=== PATIENT | male | born 1970 | race American Indian/Alaskan Native ===

== ENCOUNTER 2017-01-08 09:23 | Emergency (ER) | payer MEDICAID ==
[2017-01-08 09:23] VITALS: BMI 33.3
[2017-01-08] MEDS ORDERED: Dexamethasone 4 mg/1 ml IM STA (10:02)
--- NOTE | 2017-01-08 10:09 | C.PDOC ---
History Of Present Illness 46 y/o male presents to the ED for evaluation of itchy rash immediately below the nose since this morning. Pt states he found "poppers" last night in his basement, and states he felt lightheaded after sniffing it, and put it away afterwards. Pt states he woke up this morning with the rash. Otherwise, denies any pain, headache, dizziness, vision change, or fever. Time Seen by Provider: 01/08/17 09:39 Chief Complaint (Nursing): Allergic Reaction History Per: Patient History/Exam Limitations: no limitations Onset/Duration Of Symptoms: Hrs Current Symptoms Are (Timing): Still Present Location Of Injury: Anterior: Face Quality Of Symptoms: Itching. denies: Painful, Swollen, Draining Severity: Mild Additional History Per: Patient Past Medical History Reviewed: Historical Data, Nursing Documentation, Vital Signs Vital Signs: Last Vital Signs Temp 97.7 F 01/08/17 10:26 Pulse 65 01/08/17 10:26 Resp 18 01/08/17 10:26 BP 115/73 01/08/17 10:26 Pulse Ox 95 01/08/17 12:27 - Medical History PMH: Asthma, COPD, HTN, Hypercholesterolemia Surgical History: Cholecystectomy - [facility] Procedures INJECT/INFUSE NEC (11/25/14) OTHER SKIN & SUBQ I D (03/17/13) Family History: States: No Known Family Hx - Social History Hx Tobacco Use: Yes Hx Alcohol Use: Yes (1 bottle of beer) Hx Substance Use: Yes (marijuana) - Immunization History Hx Tetanus Toxoid Vaccination: No Hx Influenza Vaccination: No Hx Pneumococcal Vaccination: No Review Of Systems Except As Marked, All Systems Reviewed And Found Negative. Constitutional: Negative for: Fever, Chills Eyes: Negative for: Vision Change Cardiovascular: Negative for: Chest Pain, Palpitations, Light Headedness Respiratory: Negative for: Shortness of Breath Skin: Positive for: Rash (below the nose) Neurological: Negative for: Headache, Dizziness Physical Exam - Physical Exam Appears: Well, Non-toxic, No Acute Distress Skin: Warm, Dry, Rash (non-vesicular, honey crusted rash inferior/exterior nares and philthrum) Head: Normacephalic Nose: Normal, No Epistaxis, No Deformity, No Septal Hematoma Oral Mucosa: Moist Tongue: Normal Appearing, No Swelling Lips: Normal Appearing, No Swelling Throat: Normal, No Erythema, No Exudate, No Drooling Cardiovascular: Rhythm Regular Respiratory: Normal Breath Sounds, No Accessory Muscle Use, No Rales, No Rhonchi , No Wheezing Neurological/Psych: Oriented x3 ED Course And Treatment O2 Sat by Pulse Oximetry: 95 (RA) Pulse Ox Interpretation: Normal Progress Note: "Poppers" reviewed - used as an inhalant recrationally, main ingredient in amyl nitrate, can cause contact dermatitis. Patient given IM Decadron, has already taken both benadryl and claritin PO. Rxs for prednisone, benadryl cream and claritin given. Patient instructed to follow up with PMD/ clinic in 1-2 days, and he understands he should return to ED if symptoms worsen. Reevaluation Time: 10:25 Reassessment Condition: Improved Disposition Counseled Patient/Family Regarding: Diagnosis, Need For Followup, Rx Given - Disposition Referrals: Lesly Gutierrez MD [Medical Doctor] - Disposition: HOME/ ROUTINE Disposition Time: 10:25 Condition: STABLE Additional Instructions: FOLLOW UP WITH YOUR DOCTOR IN 1-2 DAYS USE MEDICATIONS DIRECTED RETURN TO ER IF SYMPTOMS WORSEN Prescriptions: Diphenhydramine HCl/Zinc Acet [Benadryl Itch Stopping Crm] 1 appl TP Q6 #1 cream..g. Loratadine [Claritin] 10 mg PO DAILY PRN #15 tab PRN Reason: ALLERGIES predniSONE [predniSONE Tab] 40 mg PO DAILY #6 tab Instructions: Contact Dermatitis (ED) Forms: [facility] ([place]) Print Language: AMHARIC - POA Present On Arrival: None - Clinical Impression Clinical Impression: Contact dermatitis - Scribe Statement The provider has reviewed the documentation as recorded by the Nelly Porter All medical record entries made by the Nelly were at my direction and personally dictated by me. I have reviewed the chart and agree that the record accurately reflects my personal performance of the history, physical exam, medical decision making, and the department course for this patient. I have also personally directed, reviewed, and agree with the discharge instructions and disposition.
[2017-01-08 10:27] VITALS: BP 115/73; PULSE 65; RESP 18; TEMP 97.7
[2017-01-08 12:13] VITALS: O2SAT 95
== END 2017-01-08 10:27 | disposition home or self-care (01) ==
LOC: C.ER 09:23
DX: L25.9 Unspecified contact dermatitis, unspecified cause (principal)
CPT/HCPCS: 96372; 99284; J1100